=== PATIENT | male | born 1975 | race Caucasian/White ===

== ENCOUNTER → 2023-04-22 | Outpatient (CLI) | payer OTHER, SELFPAY ==
--- OUTSIDE RECORDS SUMMARY | 2023-04-22 06:31 | XMS RPT_ITS | CCD ---
Author Name Unknown Address [address] [place] [address] Organization [facility] Care Team Providers Care Spreader Operator Name Role Phone Josue Gorman PA-C Unavailable Josue Gorman PA-C Unavailable Ale Lewis MA Unavailable Unavailable Emilia Gorman Unavailable Unavailable Shaquille Ba LPN Unavailable Unavailable Unavailable Unavailable Karis Gonzales MD Unavailable Orthopedic Provider Unavailable Unavailable JOSUE GORMAN Consulting Unavailable KARIS GONZALES Attending Unavailable KARIS GONZALES Primary Care Unavailable KARIS GONZALES Admitting Unavailable PROVIDER, UNKNOWN Consulting Unavailable Allergies Allergy Classification Reported Allergen(s) Allergy Type Date of Onset Reaction(s) Facility (9 sources) Amoxicillin / Clavulanate Drug Allergy [facility]. Medications Current Medications Medication Drug Class(es) Dates Sig (Normalized) Sig (Original) amLODIPine 10 mg oral tablet (9 sources) Dihydropyridine Calcium Channel Giovanni Start: 04-12-2023 amLODIPine 10 mg tablet ; 1 (one) tablet daily for 0 days Quantity: 30 {Tablet} Refills: 2 Ordered: 12-Apr-2023 ANTONIO Gorman Start: 12-Apr-2023 Problems Active Problems Problem Classification Problem Date Documented Da te Episodic/Chronic Diabetes mellitus without complication (20 sources) Diabetes mellitus; Translations: [Type 2 diabetes mellitus without complications] 12-17-2022 Chronic Past or Other Problems Problem Classification Problem Date Documented Da te Episodic/Chronic Diabetes mellitus without complication (9 sources) Diabetes mellitus without complication 09-17-2022 Unclassified (9 sources) Well adult male - The patient feels well with minor complaints (stressed), has good energy level and is sleeping well (does not sleep the whole night, wakes up randomly but can fall back asleep easily). The patient has a balanced diet. The patient does not exercise. The patient sleeps 6 (6/7) hours per night. Note for Well adult male : patient has not been to the doctor in many years maybe 8-9 no labs since then either 09-01-2022 Unclassified (5 sources) Compression FX - Py has had 6 Chiropractor visits since 03/11/23. Found compression FX on xray. Difficulty getting into truck and bed, ambulates w/ no difficulty. reviewed by [facility] 03-31-2023 Results Test Name Value Interpretation Reference Range Facil ity Vital Signs Date Time Vital Sign Value Performing Clinician Ester jacob 03-31-2023 09:51-0500 Body weight 105.24 kg Shaquille Ba LPN [facility] 03-31-2023 09:51-0500 Diastolic blood pressure 100 mm[Hg] Shaquille Ba LPN [facility]. Encounters Encounter Date Encounter Type Care Provider Facility Start: 04-01-2023 End: 04-01-2023 Orders Josue Gorman PA-C [facility] Start: 03-31-2023 End: 03-31-2023 ambulatory JOSUE GORMAN [facility] Start: 03-31-2023 End: 03-31-2023 Office outpatient visit 15 minutes Josue Bishopetler PA-C [facility] Phone[facility] Start: 01-19-2023 End: 01-19-2023 Medication Josue Bishopetler PA-C [facility] Start: 12-17-2022 End: 12-17-2022 Office outpatient visit 25 minutes Josue Gorman PA-C [facility] Start: 10-02-2022 End: 10-02-2022 Historical Summary Josue Gorman PA-C Work Phone: [employer]. Start: 09-17-2022 End: 09-17-2022 Office outpatient visit 25 minutes Josue FLORES-C Work Phone: [employer]. Start: 09-02-2022 End: 09-02-2022 Orders Josue Gorman PA-C Work Phone: [employer]. Start: 09-01-2022 End: 09-01-2022 Initial preventive medicine new patient 40-64yrs Josue Gorman PA-C Work Phone: [employer]. Start: 09-01-2022 End: 09-01-2022 Patient encounter status Josue Gorman PA-C Work Phone: [employer]; [employer]. Patient encounter status Josue Gorman PA-C Work Phone: [employer]; [employer]. Procedures Date Procedure Procedure Detail Performing Clinician Start: 03-31-2023 End: 04-01-2023 Radex spine lumbosacral 2/3 views Karis Gonzales MD Work Phone: Start: 10-02-2022 End: 10-02-2022 FIT DNA test Josue Gorman PA- C Work Phone: Plan of Treatment Date Care Activity Detail Author Start: 06-17-2023 Patient encounter procedure [employer] Start: 03-31-2023 Radex spine lumbosac ral 2/3 views Lumbo Sacral Complete (67925) Start: 31-Mar-2023 Intent [employer].; [employer]. Start: 03-31-2023 Radex spine thoracic 2 views Dorsal Spine x-ray ([id number]) Start: 31-Mar-2023 Intent [employer].; [employer]. Work Phone: Start: 09-01-2022 Radex spine lumbosac ral 2/3 views Lumbo Sacral Complete ([id number]) Start: 01-Sep-2022 Intent [employer]; [employer] Payers Date Payer Category Payer Unknown [id number] Private Health Insurance [id number] Unknown UMR Social History Date Type Detail Facility Male [employer]; [employer] Work Phone: Tobacco smoking consumption unknown [employer]; [employer] Work Phone: NEGATED: Highlighted row No Social History Information Available No Social History Information Available [employer]; [employer] Work Phone: Medical Equipment Procedure Code Equipment Code Equipment Origin al Text Equipment Identifier Dates lancets ; 1 (one ) each daily for 0 days Quantity: 1 {Packet} Refills: 2 Ordered: 17-Sep-2022 YARELIS Lewis Start: 17-Sep-2022 Comments: For use with glucometer and test strips [id number] Start: 09-17-2022 Summary Purpose Family History Fathers side of family Hx of heart disease Status:Active Hypertension Status:Active Comments:Mother. Skin Cancer Status:Active Comments:Materna l Grandmother. Maternal Grandfather. Father. Mother. Fathers side of family Hx of heart disease Status:Active Hypertension Status:Active Comments:Mother. Skin Cancer Status:Active Comments:Materna l Grandmother. Maternal Grandfather. Father. Mother. Fathers side of family Hx of heart disease Status:Active Hypertension Status:Active Comments:Mother. Skin Cancer Status:Active Comments:Materna l Grandmother. Maternal Grandfather. Father. Mother. Fathers side of family Hx of heart disease Status:Active Hypertension Status:Active Comments:Mother. Skin Cancer Status:Active Comments:Materna l Grandmother. Maternal Grandfather. Father. Mother. Fathers side of family Hx of heart disease Status:Active Hypertension Status:Active Comments:Mother. Skin Cancer Status:Active Comments:Materna l Grandmother. Maternal Grandfather. Father. Mother. Fathers side of family Hx of heart disease Status:Active Hypertension Status:Active Comments:Mother. Skin Cancer Status:Active Comments:Materna l Grandmother. Maternal Grandfather. Father. Mother. Fathers side of family Hx of heart disease Status:Active Hypertension Status:Active Comments:Mother. Skin Cancer Status:Active Comments:Materna l Grandmother. Maternal Grandfather. Father. Mother. Fathers side of family Hx of heart disease Status:Active Hypertension Status:Active Comments:Mother. Skin Cancer Status:Active Comments:Materna l Grandmother. Maternal Grandfather. Father. Mother. Fathers side of family Hx of heart disease Status:Active Hypertension Status:Active Comments:Mother. Skin Cancer Status:Active Comments:Materna l Grandmother. Maternal Grandfather. Father. Mother. Advance Directives No Advanced Directives Records FoundNo Advanced Directives Records Found Additional Source Comments (unrecognized sect ion and content) No Status Records FoundNo Status Records Found INFORMATION SOURCE (unrecogn ized section and content) DATE CREATED AUTHOR AUTHOR'S JOHN ATION 04/07/2023 [facility] FOR RECORDS PERTAINING TO PATIENTS WHO ARE OR HAVE BEEN ENROLLED IN A CHEMICAL DEPENDENCY/SUBSTANCEABUSE PROGRAM, SOME INFORMATION MAY BE OMITTED. This clinical summary was aggregated from multiple sources. Caution should be exercised in using it in the provision of clinical care. This summary normalizes information from multiple sources, and as a consequence, information in this document may materially change the coding, format and clinical context of patient data. In addition, data may be omitted in some cases. CLINICAL DECISIONS SHOULD BE BASED ON THE PRIMARY CLINICAL RECORDS. [facility]. provides no warranty or guarantee of the accuracy or completeness of information in this document.
--- NOTE | 2023-04-22 06:36 | MRI_ITS ---
STUDY: MRI THORACIC SPINE WITHOUT CONTRAST REASON FOR EXAM: Male, 48 years old. pain TECHNIQUE: Standardized fat and water weighted pulse sequences were obtained in the sagittal and axial planes. COMPARISON: None. FINDINGS: Normal kyphosis of the thoracic spine. There is no substantial scoliosis. T9-T10: Diffuse disc desiccation with mild posterior disc space narrowing resulting and a shallow left paracentral disc protrusion that causes mild compression on the left anterior aspect of the cord and mild focal central canal stenosis. T10-T11: Diffuse disc desiccation with mild to moderate disc space narrowing and a right paracentral disc protrusion osteophyte complex causing compression right anterior aspect of the cord and mild focal central canal stenosis. Mild facet joint hypertrophy. T1-2, T2-3, T3-4, T4-5, T5-6, T6-7, T7-8, T8-9, T9-10, T10-11, T11-12: Disc desiccation with mild disc space narrowing and small to moderate-sized anterior/paravertebral osteophytes are present at all visualized levels. Normal central canal and intervertebral neural foramina at the remaining corresponding levels. Normal visualized thoracic cord. Normal conus medullaris that terminates at the T12-L1 level. The soft tissue structures are unremarkable. MRI/Spine Thoracic (Routine) IMPRESSION: 1. Multilevel degenerative changes of the thoracic spine. 2. Disc protrusions at T9-T10 and T10-T11 causing mild compression on anterior aspect of the cord and focal central canal stenosis Electronically Signed: Richard Mccann MD at 15:38 EDT ,
== END | disposition home or self-care (01) ==
PROVIDERS: PCP Physician Assistant; Referring Provider Orthopaedic Surgery Orthopaedic Surgery of the Spine; Visit Provider Orthopaedic Surgery Orthopaedic Surgery of the Spine
DX: M54.6 Pain in thoracic spine (principal); G89.29 Other chronic pain
CPT/HCPCS: 72146